=== PATIENT | male | born 1985 | race Two or more races ===

== ENCOUNTER 2017-09-10 10:37 | Emergency (ER) | payer MEDICAID ==
[~2017-09-10] VITALS: Ht 165.1 cm; Wt 73.0 kg
[2017-09-10 10:56] VITALS: BP 136/86
== END 2017-09-10 11:50 | disposition home or self-care (01) ==
LOC: ER 10:37
DX: Z45.2 Encounter for adjustment and management of vascular access device (principal)

== ENCOUNTER 2021-12-16 15:25 | Emergency (ER) | payer MEDICAID ==
[~2021-12-16] VITALS: Ht 167.6 cm; Wt 83.5 kg
[2021-12-16 15:53] VITALS: BP 132/84
[2021-12-16] MEDS ORDERED: cefTRIAXone SOD 1,000 MG VL IM ONE (16:15)
[2021-12-16] MEDS ORDERED: TETANUS-DIPTH-ACEL PERTUSSIS 0.5ML SYR Tdap IM ONE (16:15)
[2021-12-16] MEDS ORDERED: CEPH-509 PO (16:21)
[2021-12-16] MEDS ORDERED: CLIN300C8 PO (16:21)
[2021-12-16] MEDS ORDERED: LIDOCAINE 1% HCL (LOCAL ANESTH.) INJ 20ML MDV ONE (16:36)
[2021-12-16] MEDS ORDERED: LIDOCAINE 1% HCL (LOCAL ANESTH.) INJ 20ML MDV ID ONE (16:45)
== END 2021-12-16 17:10 | disposition home or self-care (01) ==
LOC: ER 15:25 → EDBD 15:25 → ER 17:10
DX: S80.861A Insect bite (nonvenomous), right lower leg, initial encounter (principal); Z59.00 Homelessness unspecified; W57.XXXA Bitten or stung by nonvenomous insect and other nonvenomous arthropods, initial encounter; Y93.89 Activity, other specified; Y92.89 Other specified places as the place of occurrence of the external cause; Y99.8 Other external cause status
CPT/HCPCS: 90471; 90715; 96372; 99284; J0696; J2001

== ENCOUNTER 2025-05-03 10:03 | Emergency (ER) | payer MEDICAID ==
[~2025-05-03] VITALS: Ht 160 cm; Wt 73.0 kg
[~2025-05-03 10:03] MED LIST: CEPH-509 PO; CLIN1CAP70 PO
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
[2025-05-03] MEDS: KETOROLAC TROMETH 60MG/2ML VIAL IM ONE (10:48)
[2025-05-03] MEDS ORDERED: IBUP-1456 PO (11:46)
[2025-05-03 11:51] VITALS: BP 143/88; PULSE 102; RESP 18; TEMP 97.8; O2SAT 95
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
== END 2025-05-03 11:55 | disposition home or self-care (01) ==
LOC: ER 10:03 → EDBD 10:03 → ER 11:54
DX: M51.17 Intervertebral disc disorders with radiculopathy, lumbosacral region (principal); F17.210 Nicotine dependence, cigarettes, uncomplicated
CPT/HCPCS: 96372; 99283; J1885; 72100

== ENCOUNTER 2025-05-30 07:14 | Emergency (ER) | payer MEDICAID ==
[~2025-05-30] VITALS: Ht 167.6 cm; Wt 68.0 kg
[~2025-05-30 07:14] MED LIST changes: +IBUP-1456 PO
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
[2025-05-30] MEDS: HYDROcodone-ACET 10/325MG TAB PO ONE (09:49)
[2025-05-30 10:00] VITALS: BP 125/84; PULSE 98; RESP 18; TEMP 98.2; O2SAT 96
== END 2025-05-30 10:09 | disposition home or self-care (01) ==
LOC: ER 07:14 → EDBD 07:14 → ER 10:09
DX: F41.9 Anxiety disorder, unspecified (principal); M54.9 Dorsalgia, unspecified; M79.18 Myalgia, other site; G89.29 Other chronic pain; F17.210 Nicotine dependence, cigarettes, uncomplicated; Z79.1 Long term (current) use of non-steroidal anti-inflammatories (NSAID); Z59.00 Homelessness unspecified; Z79.899 Other long term (current) drug therapy